=== PATIENT | female | born 1960 | race Caucasian/White ===

== ENCOUNTER 2018-09-07 07:19 | Emergency (ER) | payer SELFPAY ==
[~2018-09-07] VITALS: Ht 167.6 cm; Wt 90.9 kg
[2018-09-07 07:21] VITALS: BP 142/106
[2018-09-07] MEDS ORDERED: IBUP-2070 PO (07:25)
== END 2018-09-07 09:45 | disposition home or self-care (01) ==
LOC: EMS 07:19
DX: S16.1XXA Strain of muscle, fascia and tendon at neck level, initial encounter (principal); S39.012A Strain of muscle, fascia and tendon of lower back, initial encounter; S70.02XA Contusion of left hip, initial encounter; F17.210 Nicotine dependence, cigarettes, uncomplicated; Z79.899 Other long term (current) drug therapy; V43.62XA Car passenger injured in collision with other type car in traffic accident, initial encounter; Y93.89 Activity, other specified; Y92.89 Other specified places as the place of occurrence of the external cause; Y99.8 Other external cause status
CPT/HCPCS: 73503

== ENCOUNTER 2020-09-08 19:46 | Emergency (ER) | payer MEDICAID ==
[~2020-09-08] VITALS: Ht 170.2 cm; Wt 76.4 kg
[~2020-09-08 19:46] MED LIST: IBUP-2070 PO
[2020-09-08 22:50] LABS: BASOPHILS % (AUTO) 0.5 % (0.0-2.0); EOSINOPHILS % (AUTO) 3.3 % (1.0-6.0); HEMATOCRIT 40.4 % (36-46); LYMPHOCYTES # (AUTO) 2.3 K/uL (1.0-4.8); LYMPHOCYTES % (AUTO) 23.6 % (22.0-44.0); MEAN CORPUSCULAR HEMOGLOBIN 32.3 pg (26.0-34.0); MEAN CORPUSCULAR HGB CONC 34.7 G/dL (31.0-37.0); MEAN CORPUSCULAR VOLUME 93 fL (80-100); MONOCYTES # (AUTO) 0.8 K/uL (0.1-1.0); MONOCYTES % (AUTO) 7.9 % (2.0-9.0); NEUTROPHILS # (AUTO) 6.2 K/uL (1.8-7.7); NEUTROPHILS % (AUTO) 64.7 % (40.0-70.0); PLATELET COUNT (AUTO) 285 K/uL (150-450); RED BLOOD CELL COUNT(AUTO) 4.35 MIL/uL (4.00-5.20)
[2020-09-08 23:07] LABS: ANION GAP 8 mmol/L (8-16); CALCIUM, TOTAL 8.8 mg/dL (8.8-10.5); CARBON DIOXIDE 27 mmol/L (22-29); CHLORIDE 101 mmol/L (98-107); CREATININE 0.89 mg/dL (0.60-1.30); GLOMERULAR FILTR. RATE CALC > 60 mL/min (>60); GLUCOSE,RANDOM 98 mg/dL (70-110); POTASSIUM 3.7 mmol/L (3.5-5.1); SODIUM SERUM 136 mmol/L (136-145); UREA NITROGEN, BLOOD 16 mg/dL (7-18)
[2020-09-08 23:19] LABS: ALANINE AMINOTRANSFERASE 24 U/L (12-78); ALBUMIN 3.5 g/dL (3.4-5.0); ALKALINE PHOSPHATASE 104 U/L (46-116); ASPARTATE AMINOTRANSFERASE 17 U/L (15-37); BILIRUBIN,TOTAL 0.7 mg/dL (0.1-1.0); FREE T4 (FREE THYROXINE) 1.16 ng/dL (0.76-1.46); THYROID STIMULATING HORMONE 2.12 uIU/mL (0.36-3.74); TOTAL PROTEIN, SERUM 7.6 g/dL (6.4-8.2)
[2020-09-08 23:30] VITALS: BP 132/85
== END 2020-09-09 | disposition home or self-care (01) ==
LOC: EMS 19:46
DX: R07.89 Other chest pain (principal); F41.9 Anxiety disorder, unspecified; R42 Dizziness and giddiness; R53.1 Weakness; F17.210 Nicotine dependence, cigarettes, uncomplicated
CPT/HCPCS: 36415; 71045; 80053; 84439; 84443; 84484; 85025; 93005; 99285; G0480

== ENCOUNTER 2024-11-14 11:57 | Emergency (ER) | payer MEDICAID, MEDICARE ==
[~2024-11-14] VITALS: Ht 170.2 cm; Wt 90.0 kg
[~2024-11-14 11:57] MED LIST changes: +IBUP-1492 PO; -IBUP-2070 PO
[2024-11-14 11:58] VITALS: TEMP 98.1
[2024-11-14 12:29] VITALS: BP 124/66; PULSE 64; RESP 18; O2SAT 96
[2024-11-14] MEDS ORDERED: FLUT16SP NASAL (12:53)
[2024-11-14] MEDS ORDERED: ACET-66 PO (12:53)
[2024-11-14 13:00] LABS: GLUCOMETER DEV NAME(LOC) ER.7; GLUCOSE,POINT OF CARE 88 MG/DL (70-110)
== END 2024-11-14 13:10 | disposition home or self-care (01) ==
LOC: EMS 12:05
DX: J32.9 Chronic sinusitis, unspecified (principal); J06.9 Acute upper respiratory infection, unspecified; R42 Dizziness and giddiness; I10 Essential (primary) hypertension; F17.210 Nicotine dependence, cigarettes, uncomplicated
CPT/HCPCS: 82962; 99282